=== PATIENT | female | born 1990 | race Caucasian/White ===

== ENCOUNTER 2017-06-23 13:00 | Emergency (ER) | payer SELFPAY ==
[~2017-06-23] VITALS: Ht 167.6 cm; Wt 71.3 kg
[~2017-06-23 13:00] MED LIST: ENDOCET 5-3251 EACH PO; IBUPROFEN800 MG PO; MACROBID100 MG PO; MOTRIN800 MG PO; Motrin PO; PRENATAL TABLE1 EAC3 PO; ZOFRAN4 MG PO
[2017-06-23 13:16] VITALS: BP 145/92
== END 2017-06-23 14:18 | disposition home or self-care (01) ==
LOC: EME 13:00
DX: T81.31XA Disruption of external operation (surgical) wound, not elsewhere classified, initial encounter (principal); Y83.8 Other surgical procedures as the cause of abnormal reaction of the patient, or of later complication, without mention of misadventure at the time of the procedure
CPT/HCPCS: 99281; 99282